=== PATIENT | female | born 2000 | race African-American/Black ===

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

== ENCOUNTER 2022-04-06 20:00 | Emergency (ER) | payer MEDICAID, OTHER ==
[~2022-04-06] VITALS: Ht 160 cm; Wt 129.9 kg
[~2022-04-06 20:00] MED LIST: DIPH25CA83 PO; HYDR30OI12 TP; P20 PO
[2022-04-06 20:20] VITALS: BP 126/57
[2022-04-06] MEDS ORDERED: IBUPROFEN 400MG TABLET PO ONE (22:00)
[2022-04-06] MEDS ORDERED: IBUP-2028 PO (22:29)
== END 2022-04-06 22:37 | disposition home or self-care (01) ==
LOC: ER 20:00
DX: S00.03XA Contusion of scalp, initial encounter (principal); M79.632 Pain in left forearm; Y08.89XA Assault by other specified means, initial encounter; Y93.89 Activity, other specified; Y92.9 Unspecified place or not applicable
CPT/HCPCS: 73090; 81025; 99283

== ENCOUNTER 2022-09-11 02:44 | Emergency (ER) | payer MEDICAID, OTHER ==
[~2022-09-11] VITALS: Ht 170.2 cm; Wt 122.0 kg
[~2022-09-11 02:44] MED LIST changes: +IBUP-2028 PO
[2022-09-11 02:50] VITALS: BP 124/67
[2022-09-11] MEDS ORDERED: IBUP-2029 MT (02:56)
== END 2022-09-11 03:04 | disposition home or self-care (01) ==
LOC: ER 02:44
DX: J02.9 Acute pharyngitis, unspecified (principal)
CPT/HCPCS: 87070; 87430; 99283